=== PATIENT | male | born 1960 | race Two or more races ===

== ENCOUNTER 2020-09-01 15:38 | Inpatient (IN) | payer BC, OTHER ==
[~2020-09-01] VITALS: Ht 175.3 cm; Wt 93.6 kg
[2020-09-01] MEDS ORDERED: CLINDAMYCIN 900MG IV 50 ML IV ONE (17:00)
[2020-09-01] MEDS ORDERED: cefTRIAXone 1GM/50ML D5W 50 ML IV ONE (17:00)
[2020-09-01 17:11] LABS: Basophils # (auto) 0.1 10 ^3/uL (0-0.2); Basophils % (auto) 0.9 % (0.0-2.0); Eosinophils # (auto) 0 10 ^3/uL (0-0.8); Eosinophils % (auto) 0.5 % (0.0-7.0); Hematocrit 34.7 % (41.0-53.0); Hemoglobin 11.6 g/dL (13.5-17.5); Lymphocytes # (auto) 1.1 10 ^3/uL (0.4-5.4); Lymphocytes % (auto) 19.6 % (10.0-50.0); Mean Corpuscular Hemoglobin 30.5 pg (28.0-32.0); Mean Corpuscular Hgb Conc. 33.5 g/dL (32.0-36.0); Mean Corpuscular Volume 90.9 fL (80.0-100.0); Monocytes # (auto) 0.5 10 ^3/uL (0-1.3); Monocytes % (auto) 8.3 % (0.0-12.0); Neutrophils # (auto) 4.1 10 ^3/uL (1.6-8.6); Neutrophils % (auto) 70.7 % (37.0-80.0); Nucleated Red Blood Cells % 0.1 %; Platelet Count (auto) 363 10^3/uL (140-450); Red Blood Cells 3.81 10^6/uL (4.5-5.90); Red Cell Distribution Width 15.4 % (11.8-14.3); White Blood Cell 5.8 10^3/uL (4.4-10.8)
[2020-09-01 17:26] LABS: INR 1.3 (0.9-1.15)
[2020-09-01 17:30] LABS: Albumin 3.3 g/dL (3.4-5.0); Calcium 8.8 mg/dL (8.5-10.1); Potassium 3.9 mmol/L (3.5-5.1)
[2020-09-01 17:33] LABS: BUN/Creatinine Ratio 16.7; Bilirubin, Total 0.9 mg/dL (0.2-1.0); Total Protein 7.9 g/dL (6.4-8.2)
[2020-09-01] MEDS ORDERED: InsuLIN REG 1unit/0.01ml Soln (100units/ml) SC ONE (18:45)
[2020-09-01] MEDS ORDERED: PANTOPRAZOLE 40 MG/10 ML VIAL INJ IV ONE (18:45)
[2020-09-01] MEDS ORDERED: NITROGLYCERIN 0.4 MG SL TAB SL PRN ×2 (19:15→19:45)
[2020-09-01] MEDS ORDERED: MORPHINE SULF INJ 2 MG/ML SYRINGE 1ML IV PRN ×2 (19:15→19:45)
[2020-09-01] MEDS ORDERED: LACTATED RINGER'S 1,000 ML IV ONE (19:30)
[2020-09-01] MEDS ORDERED: LORazepam 0.5 MG TAB PO PRN (19:45)
[2020-09-01] MEDS ORDERED: PIPERACILLIN-TAZOB 2.25GM 50 ML IV ONE (19:45)
[2020-09-01] MEDS ORDERED: ACETAMINOPHEN 325 MG TAB PO PRN (19:45)
[2020-09-01] MEDS ORDERED: VANCOMYCIN PER PHARMACY 0 MG IV SCH (19:45)
[2020-09-01] MEDS ORDERED: DEXTROSE (50%) 50ML SYRG IV PRN (19:45)
[2020-09-01] MEDS ORDERED: DOCUSATE SOD 100 MG CAP PO PRN (19:45)
[2020-09-01] MEDS ORDERED: ALUM & MAG HYDROX-SIMETH LIQ(MAALOX) 30 ML PO PRN (19:45)
[2020-09-01] MEDS ORDERED: ONDANSETRON HCL 4 MG/2 ML VIAL IV PRN (19:45)
[2020-09-01] MEDS ORDERED: hydrALAZINE HCL 20 MG/ML VL IV PRN (20:15)
[2020-09-01] MEDS: SODIUM CHLORIDE 0.9% 1,000 ML IV SCH (20:26)
[2020-09-01 21:18] LABS: Cholesterol 108 mg/dL (< 200); Triglycerides 134 mg/dL (< 150)
[2020-09-01 21:20] LABS: HDL Cholesterol 38 mg/dL (40-59); LDL Cholesterol 53 mg/dL (< 100)
[2020-09-01 22:00] VITALS: BP 120/91
[2020-09-01] MEDS ORDERED: VANCOMYCIN 1GM/250ML 250 ML IV ONE (22:00)
[2020-09-01] MEDS ORDERED: CARV25TA55 PO (22:28)
[2020-09-01] MEDS ORDERED: DOXY-340 PO (22:28)
[2020-09-01] MEDS ORDERED: SITA100T7 PO (22:28)
[2020-09-01] MEDS ORDERED: GABA800T97 PO (22:28)
[2020-09-01] MEDS ORDERED: LISI2.5T47 PO (22:28)
[2020-09-01] MEDS ORDERED: HYDR12.55 PO (22:28)
[2020-09-01] MEDS ORDERED: SEMA2INJ SC (22:28)
[2020-09-01] MEDS ORDERED: RIV20T PO (22:28)
[2020-09-01] MEDS ORDERED: INSUINJ37 SC (22:28)
[2020-09-01] MEDS: ACCU-CHEK COMFORT CURVE STRIP VI SCH (23:03)
[2020-09-01] MEDS: InsuLIN REG 1unit/0.01ml Soln (100units/ml) SC SCH (23:14)
[2020-09-01] MEDS: CARVEDILOL 12.5 MG TAB PO SCH (23:15)
[2020-09-01] MEDS: GABAPENTIN 300 MG CAP PO SCH (23:15)
[2020-09-01] MEDS: ATORVASTATIN 20 MG TAB PO SCH (23:15)
--- NOTE | 2020-09-02 00:05 | NUR ---
tele admit from ED pt arrived awake alert oriented on room air no distress noted or expressed. pt oriented to this nurse, room, bathroom, bed control, call light usage. pt updated on plan of care. pt denies any pain. pt bed locked low and 2x rails up. pt tele 42 showing sinus tach 112bpm. pt has wound to left foot to which he reports he is able to ambulate whilst managing most of weight on opposite leg. pt dressing applied in ED post photo is clean dry intact. pt call light in reach, encouraged to call as needed. this nurse to round q1hr and prn.
[2020-09-02 05:49] VITALS: BP 105/63
[2020-09-02] MEDS: PIPERACILLIN-TAZOB 2.25GM 50 ML IV SCH ×2 (06:20→12:00)
[2020-09-02] MEDS: GABAPENTIN 300 MG CAP PO SCH ×3 (06:20→22:11)
[2020-09-02 06:21] LABS: Basophils # (auto) 0.1 10 ^3/uL (0-0.2); Basophils % (auto) 1.3 % (0.0-2.0); Eosinophils # (auto) 0.1 10 ^3/uL (0-0.8); Eosinophils % (auto) 2.4 % (0.0-7.0); Hematocrit 32.6 % (41.0-53.0); Hemoglobin 10.8 g/dL (13.5-17.5); Lymphocytes # (auto) 1.4 10 ^3/uL (0.4-5.4); Lymphocytes % (auto) 27.1 % (10.0-50.0); Mean Corpuscular Hemoglobin 30.1 pg (28.0-32.0); Mean Corpuscular Hgb Conc. 33.2 g/dL (32.0-36.0); Mean Corpuscular Volume 90.7 fL (80.0-100.0); Monocytes # (auto) 0.5 10 ^3/uL (0-1.3); Neutrophils % (auto) 59.2 % (37.0-80.0); Nucleated Red Blood Cells % 0.1 %; Platelet Count (auto) 319 10^3/uL (140-450); Red Blood Cells 3.59 10^6/uL (4.5-5.90); Red Cell Distribution Width 15.2 % (11.8-14.3); White Blood Cell 5.1 10^3/uL (4.4-10.8)
[2020-09-02] MEDS: InsuLIN REG 1unit/0.01ml Soln (100units/ml) SC SCH ×4 (06:24→22:15)
[2020-09-02] MEDS: ACCU-CHEK COMFORT CURVE STRIP VI SCH ×4 (06:40→22:13)
[2020-09-02 06:44] LABS: BUN/Creatinine Ratio 16.4; Calcium 8.6 mg/dL (8.5-10.1)
[2020-09-02 08:20] VITALS: BP 119/80
--- NOTE | 2020-09-02 08:20 | NUR ---
Opening Shift Note Assumed care of patient, awake and alert. No S/S of distress/SOB or pain. 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 Dr. Melara at bedside discussing the POC and possible surgical intervention today pending cardiac clearance. Patient verbalized understanding. Instructed to call for assist PRN. Will continue to monitor for changes Q1hr and PRN.
[2020-09-02 09:00] VITALS: BP 119/80
--- NOTE | 2020-09-02 09:21 | NUR ---
JACKELYN SPOKE WITH PRIMARY RN GARCIA REGARDING MIDLINE ORDER. SHE STATED PATIENT HAS 2 PATENT PIV AT THIS TIME AND IS IN NO NEED FOR A MIDLINE RIGHT NOW. I LET HER KNOW SINCE PATIENTS ADMITTING DIAGNOSIS IS OSTEOMYELITIS HE MAY STILL NEED MIDLINE OR PICC LINE UPON DISCHARGE IF DOCTOR ORDERS HOME IV ABX. WILL FOLLOW UP WITH PATIENTS STATUS.
[2020-09-02] MEDS: ENOXAPARIN SOD 40 MG/0.4 ML SYRINGE SC SCH (10:00)
[2020-09-02] MEDS: ASPirin 81 mg TAB PO SCH (10:00)
[2020-09-02] MEDS: HCTZ 25 MG TAB PO SCH (10:00)
[2020-09-02] MEDS: SODIUM CHLORIDE 0.9% 1,000 ML IV SCH ×2 (10:03→22:36)
[2020-09-02] MEDS: CARVEDILOL 12.5 MG TAB PO SCH ×2 (10:04→22:00)
[2020-09-02] MEDS: LISINOPRIL 5 MG TAB PO SCH (10:05)
--- NOTE | 2020-09-02 10:08 | NUR ---
Medication withheld Lovenox and aspirin held for procedure. Surgeon aware. Patient's BP 119/80 withheld hydrochlorothiazide per pre-op. Carvedilol and lisinopril given. Will update MD.
--- NOTE | 2020-09-02 11:30 | NUR ---
Patient transferred to OR Patient transported off the floor to OR by bed. Report given to pre-op nurse.
[2020-09-02] MEDS ORDERED: BACITRACIN INJ 50000 UNIT VIAL ONE (12:15)
[2020-09-02] MEDS ORDERED: BUPIVACAINE 0.25% INJ 50ML VIAL ONE (12:15)
--- NOTE | 2020-09-02 12:25 | NUR ---
ASSUMED CARE RECEIVED REPORT FROM GARCIA KAT. WILL CONTINUE CARE.
[2020-09-02] MEDS ORDERED: DexAMETHasone SOD PHOS 10MG/1ML VIAL INJ ONE (12:31)
[2020-09-02] MEDS ORDERED: fentaNYL CITRATE 100 MCG/2 ML VL ONE (12:31)
[2020-09-02] MEDS ORDERED: MIDAZOLAM HCL 1MG/1ML-2 ML VIAL ONE (12:31)
[2020-09-02] MEDS ORDERED: MEPERIDINE HCL (25 MG/ML) 1ML VIAL ONE (12:31)
[2020-09-02] MEDS ORDERED: PROPOFOL 10 MG/ML 20 ML IV ONE (12:31)
--- NOTE | 2020-09-02 12:37 | NUR ---
Handoff Report given to Kiara.
[2020-09-02] MEDS ORDERED: VANCOMYCIN 1GM/250ML 250 ML IV ONE ×2 (13:45→17:05)
[2020-09-02] MEDS ORDERED: MORPHINE SULFATE 4 MG/ML SYR/VIAL IV PRN (15:30)
[2020-09-02] MEDS ORDERED: ePHEDrine SULFATE 50 MG/ML AMP IV PRN (15:30)
[2020-09-02] MEDS ORDERED: MIDAZOLAM HCL 1MG/1ML-2 ML VIAL IV PRN (15:30)
[2020-09-02] MEDS ORDERED: ONDANSETRON HCL 4 MG/2 ML VIAL IV PRN (15:30)
[2020-09-02] MEDS ORDERED: LABETALOL HCL 5 MG/ML 4ML SYRINGE IV PRN (15:30)
[2020-09-02] MEDS ORDERED: HYDROmorphone HCL 2 MG/ML VL IV PRN (15:30)
--- NOTE | 2020-09-02 16:16 | NUR ---
MIDLINE SPOKE WITH PRIMARY RN BARBARA REGARDING MIDLINE ORDER. AWAITING FURTHER ANTIBIOTIC DURATION OF TREATMENT TO ENSURE PROPER LINE IS PLACED DUE TO PATIENTS DIAGNOSIS. PATIENT HAS 2 PATENT PIV AT THIS TIME.
--- NOTE | 2020-09-02 16:17 | NUR ---
BACK FROM OR PATIENT BROUGHT BACK TO ROOM AFTER REPORT RECEIVED. NO S/S OF DISTRESS NOTED OR COMPLAINTS OF PAIN AT THIS TIME. PATIENT HAS SENSATION AND IS ABLE TO MOVE TOES. WILL CONTINUE TO MONITOR Q1H AND PRN.
[2020-09-02 17:02] VITALS: BP 106/68
[2020-09-02 18:12] LABS: Hematocrit 32.4 % (41.0-53.0); Hemoglobin 10.6 g/dL (13.5-17.5)
[2020-09-02] MEDS: PIPERACILLIN-TAZOB 3.375GM 100 ML IV SCH ×2 (18:28→23:55)
--- NOTE | 2020-09-02 18:37 | NUR ---
AT BEDSIDE DR FLOOD AT BEDSIDE ROUNDING ON PATIENT.
--- NOTE | 2020-09-02 19:20 | NUR ---
OPENING SHIFT NOTE Assumed care of patient who is alert and oriented, currently on RA with no S/S of distress or SOB noted at this time. Patient had an I&D of the left foot today with , dressing is clean dry and intact. Patient complains of pain 6/10 to the left foot, will administer pain medication as ordered. POC discussed with patient, all questions answered and patient verbalized understanding. Bed in lowest position, locked, side rials up x2. Call light within reach, patient encouraged to call for assistance as needed. Will continue to monitor PRN/Q1hr.
[2020-09-02] MEDS: HYDROcodone-ACET 5/325MG TAB PO PRN (20:05)
[2020-09-02 22:00] VITALS: BP 97/68
--- NOTE | 2020-09-02 22:00 | NUR ---
SPOKE WITH HOSPITALIST PANCHITO REGARDING PATIENTS BLOOD PRESSURE. BP 97/68 HR 95, ORDERED TO HOLD COREG FOR TONIGHT. WILL CARRY OUT ORDER AND HOLD 2200 COREG.
[2020-09-02] MEDS: ATORVASTATIN 20 MG TAB PO SCH (22:13)
[2020-09-03] MEDS: PIPERACILLIN-TAZOB 3.375GM 100 ML IV SCH ×4 (05:48→23:45)
[2020-09-03] MEDS: GABAPENTIN 300 MG CAP PO SCH ×3 (05:48→22:00)
[2020-09-03 05:55] VITALS: BP 100/65
[2020-09-03] MEDS: ACCU-CHEK COMFORT CURVE STRIP VI SCH ×4 (06:35→22:00)
[2020-09-03] MEDS: InsuLIN REG 1unit/0.01ml Soln (100units/ml) SC SCH ×4 (06:37→22:00)
--- NOTE | 2020-09-03 07:17 | NUR ---
CARE ENDORSED TO GARCIA KAT
--- NOTE | 2020-09-03 07:20 | NUR ---
Opening Shift Note Assumed care of patient. Patient sleeping. maintenance technician 3rd shift reported patient was up all night. Will return for morning assessment. Will continue to monitor for changes Q1hr and PRN.
[2020-09-03 08:15] VITALS: BP 136/69
[2020-09-03 08:56] VITALS: BP 99/64
--- NOTE | 2020-09-03 09:00 | NUR ---
Dr. Chavez at bedside Dr. Chavez at bedside discussing the POC with the patient. Patient verbalized understanding. All questions and concerns were answered at this time.
[2020-09-03] MEDS: CARVEDILOL 12.5 MG TAB PO SCH ×2 (10:00→22:00)
[2020-09-03] MEDS: HCTZ 25 MG TAB PO SCH (10:00)
[2020-09-03] MEDS: LISINOPRIL 5 MG TAB PO SCH (10:00)
[2020-09-03] MEDS: ENOXAPARIN SOD 40 MG/0.4 ML SYRINGE SC SCH (10:31)
[2020-09-03] MEDS: VANCOMYCIN 1GM/250ML 250 ML IV SCH (10:32)
[2020-09-03] MEDS: ASPirin 81 mg TAB PO SCH (10:33)
--- NOTE | 2020-09-03 11:00 | NUR ---
Medication withheld HCTZ and lisinopril held for low BP 104/66. Dr. Chavez aware.
[2020-09-03] MEDS: SODIUM CHLORIDE 0.9% 1,000 ML IV SCH ×2 (11:45→19:30)
[2020-09-03 12:46] VITALS: BP 114/63
--- NOTE | 2020-09-03 14:33 | NUR ---
Spoke with Dr. Kelton Melara called to inquire about possible dressing changes. Wound shows no signs of active bleeding but does have a moderate amount of dried blood on the lateral side. Informed that Lovenox was given this morning. Doctor stated that he is more concerned about his hemodynamic function and that he has no issue with continuing the medication. Doctor stated he will input orders. Will carry out accordingly.
--- NOTE | 2020-09-03 16:10 | NUR ---
Low BP Patient's BP 93/59 reported at 1600 vitals. Patient is asymptomatic. Dr. Chavez called. Ordered 1L given over 1 HR and then 125 mL/HR. CMP, CBC ordered for the AM. Will continue to assess.
--- NOTE | 2020-09-03 17:00 | NUR ---
Dressings changed Wound dressings changed according to doctors orders. Tissue appears to have a good blood supply. Patient tolerated procedure well.
[2020-09-03 17:06] VITALS: BP 93/59
--- NOTE | 2020-09-03 18:32 | NUR ---
IV removal Left forearm IV site appeared edematous after running NS. IV DC'd with sterile technique, catheter fully intact. Pressure dressing applied as well as an ice pack and elevated on a pillow. Patient tolerated procedure well. Discharged with aftercare instructions per MD. IV access obtained, via clean sterile technique by inserting 20 gauge catheter on the left AC after 1 attempt. IV secured properly. No trauma to site. Patient tolerated procedure well.
--- NOTE | 2020-09-03 18:51 | NUR ---
BP reassessed BP reassessed after 1L given, 97/51. Hospitalist called ordered 1L bolus. Will endorse to shift supervisor to reassess.
[2020-09-03] MEDS ORDERED: SODIUM CHLORIDE 0.9% 1,000 ML IV ONE ×2 (19:30→19:45)
[2020-09-03 22:00] VITALS: BP 114/74
[2020-09-03] MEDS: ATORVASTATIN 20 MG TAB PO SCH (22:00)
[2020-09-03] MEDS: DAKINS QUARTER STR 0.125% (NaHypochlorite) 473 ML TOPICAL SOL TOP SCH (22:00)
[2020-09-03] MEDS: MORPHINE SULF INJ 2 MG/ML SYRINGE 1ML IV PRN (23:15)
[2020-09-04] MEDS: VANCOMYCIN 1GM/250ML 250 ML IV SCH (00:56)
[2020-09-04] MEDS: SODIUM CHLORIDE 0.9% 1,000 ML IV SCH ×4 (00:57→19:42)
[2020-09-04 05:00] VITALS: BP 115/73
[2020-09-04] MEDS: GABAPENTIN 300 MG CAP PO SCH ×3 (06:00→22:13)
[2020-09-04] MEDS: PIPERACILLIN-TAZOB 3.375GM 100 ML IV SCH (06:00)
[2020-09-04 06:15] LABS: Basophils # (auto) 0.1 10 ^3/uL (0-0.2); Basophils % (auto) 0.9 % (0.0-2.0); Eosinophils # (auto) 0.1 10 ^3/uL (0-0.8); Eosinophils % (auto) 1.1 % (0.0-7.0); Hematocrit 29.3 % (41.0-53.0); Hemoglobin 9.9 g/dL (13.5-17.5); Lymphocytes # (auto) 1.6 10 ^3/uL (0.4-5.4); Lymphocytes % (auto) 24.3 % (10.0-50.0); Mean Corpuscular Hemoglobin 30.5 pg (28.0-32.0); Mean Corpuscular Hgb Conc. 33.7 g/dL (32.0-36.0); Mean Corpuscular Volume 90.7 fL (80.0-100.0); Monocytes # (auto) 0.5 10 ^3/uL (0-1.3); Monocytes % (auto) 8.1 % (0.0-12.0); Neutrophils # (auto) 4.3 10 ^3/uL (1.6-8.6); Neutrophils % (auto) 65.6 % (37.0-80.0); Platelet Count (auto) 278 10^3/uL (140-450); Red Blood Cells 3.23 10^6/uL (4.5-5.90); Red Cell Distribution Width 15.4 % (11.8-14.3); White Blood Cell 6.5 10^3/uL (4.4-10.8)
[2020-09-04 06:32] LABS: Albumin 2.5 g/dL (3.4-5.0); BUN/Creatinine Ratio 14.2; Calcium 8.4 mg/dL (8.5-10.1)
[2020-09-04 06:34] LABS: Bilirubin, Total 0.7 mg/dL (0.2-1.0); Total Protein 6.4 g/dL (6.4-8.2)
[2020-09-04] MEDS: ACCU-CHEK COMFORT CURVE STRIP VI SCH ×4 (06:46→22:13)
[2020-09-04] MEDS: InsuLIN REG 1unit/0.01ml Soln (100units/ml) SC SCH ×4 (06:47→22:17)
--- NOTE | 2020-09-04 07:30 | NUR ---
RECEIVED REPORT FROM NIGHT NURSE. PATIENT RESTING IN BED, NO DISTRESS NOTED. WILL CONTINUE TO MONITOR.
[2020-09-04 08:30] VITALS: BP 119/73
[2020-09-04] MEDS: ENOXAPARIN SOD 40 MG/0.4 ML SYRINGE SC SCH (10:00)
[2020-09-04] MEDS: ASPirin 81 mg TAB PO SCH (10:45)
[2020-09-04] MEDS: levoFLOXacin 500MG 100 ML IV SCH (10:45)
[2020-09-04] MEDS: CARVEDILOL 12.5 MG TAB PO SCH ×2 (10:46→22:13)
[2020-09-04] MEDS: LISINOPRIL 5 MG TAB PO SCH (10:46)
[2020-09-04] MEDS: HCTZ 25 MG TAB PO SCH (10:47)
[2020-09-04 12:14] VITALS: BP 119/73
--- NOTE | 2020-09-04 12:21 | NUR ---
Assumed pt Care Assumed pt care from [facility]. Pt is a/ox4 with no s/s of distress or SOB. Pt is currently sitting upright in bed with no complaints at this time. Will continue to monitor.
--- NOTE | 2020-09-04 12:27 | NUR ---
PATIENT CARE ENDORSED TO [facility].
[2020-09-04] MEDS: DAKINS QUARTER STR 0.125% (NaHypochlorite) 473 ML TOPICAL SOL TOP SCH ×2 (12:57→22:14)
--- NOTE | 2020-09-04 12:58 | NUR ---
Wound Care Performed Per MDs orders Pt tolerated treatment well. Will continue to monitor.
--- NOTE | 2020-09-04 14:03 | NUR ---
Nutrition Assessment Est energy needs 1227-1729 kcal (18-20 kcal/kg BW 97.4kg) Est protein needs 73-95g (1-1.3g/kg IBW 73kg) Will monitor and reassess prn. Addendum: 09/04/20 at [address] Amended: Links added.
[2020-09-04] MEDS: MORPHINE SULF INJ 2 MG/ML SYRINGE 1ML IV PRN ×3 (15:49→23:48)
[2020-09-04 16:53] VITALS: BP 112/70
--- NOTE | 2020-09-04 19:34 | NUR ---
Opening Shift Note Assumed care of patient, awake and alert x 4. No S/S of distress/SOB. Bed is in lowest position and locked. Call light within reach. Board updated. Tele box number matches monitor and leads are in correct placement. Instructed on POC and to call for assist PRN, will continue to monitor for changes Q1hr and PRN.
[2020-09-04 22:00] VITALS: BP 129/69
[2020-09-04] MEDS: ATORVASTATIN 20 MG TAB PO SCH (22:13)
[2020-09-04] MEDS: HYDROcodone-ACET 5/325MG TAB PO PRN (22:41)
--- NOTE | 2020-09-04 22:48 | NUR ---
Wound care performed per MD order. Patient tolerated well.
[2020-09-05] MEDS: SODIUM CHLORIDE 0.9% 1,000 ML IV SCH ×3 (04:09→20:15)
[2020-09-05 05:00] VITALS: BP 111/74
[2020-09-05] MEDS: GABAPENTIN 300 MG CAP PO SCH ×3 (06:00→22:19)
[2020-09-05 06:20] LABS: Basophils # (auto) 0 10 ^3/uL (0-0.2); Basophils % (auto) 0.3 % (0.0-2.0); Eosinophils # (auto) 0.2 10 ^3/uL (0-0.8); Hematocrit 28.5 % (41.0-53.0); Hemoglobin 9.6 g/dL (13.5-17.5); Lymphocytes # (auto) 1.9 10 ^3/uL (0.4-5.4); Lymphocytes % (auto) 34.1 % (10.0-50.0); Mean Corpuscular Hemoglobin 30.6 pg (28.0-32.0); Mean Corpuscular Hgb Conc. 33.7 g/dL (32.0-36.0); Mean Corpuscular Volume 90.8 fL (80.0-100.0); Monocytes # (auto) 0.7 10 ^3/uL (0-1.3); Neutrophils # (auto) 2.8 10 ^3/uL (1.6-8.6); Neutrophils % (auto) 49.6 % (37.0-80.0); Platelet Count (auto) 253 10^3/uL (140-450); Red Blood Cells 3.14 10^6/uL (4.5-5.90); Red Cell Distribution Width 15.5 % (11.8-14.3); White Blood Cell 5.6 10^3/uL (4.4-10.8)
[2020-09-05 06:27] LABS: INR 1.06 (0.9-1.15); Partial Thromboplastin Time 24.5 sec (23.0-31.2)
[2020-09-05] MEDS: ACCU-CHEK COMFORT CURVE STRIP VI SCH ×4 (06:34→22:14)
[2020-09-05] MEDS: InsuLIN REG 1unit/0.01ml Soln (100units/ml) SC SCH ×4 (06:34→22:18)
[2020-09-05 06:38] LABS: BUN/Creatinine Ratio 12.9; Calcium 8.5 mg/dL (8.5-10.1)
[2020-09-05] MEDS ORDERED: IOHEXOL 350 MG/ML 100ML IJ ONE ×2 (07:38→15:12)
[2020-09-05 07:40] VITALS: BP 124/80
--- NOTE | 2020-09-05 07:40 | NUR ---
Patient stable at this time with no complaint of pain.
[2020-09-05 08:41] VITALS: BP 124/80
--- NOTE | 2020-09-05 08:50 | NUR ---
Patient resting comfortably in bed with no distress noted. Patient stable.
[2020-09-05] MEDS: CARVEDILOL 12.5 MG TAB PO SCH ×2 (09:18→22:20)
[2020-09-05] MEDS: LISINOPRIL 5 MG TAB PO SCH (09:18)
[2020-09-05] MEDS: levoFLOXacin 500MG 100 ML IV SCH (09:18)
[2020-09-05] MEDS: HCTZ 25 MG TAB PO SCH (09:18)
[2020-09-05] MEDS: ASPirin 81 mg TAB PO SCH (09:18)
--- NOTE | 2020-09-05 09:19 | NUR ---
Scheduled IV abx given per order. Patient stable with Dr. Yu at bedside to do dressing change on left foot. Patient stable.
[2020-09-05] MEDS: DAKINS QUARTER STR 0.125% (NaHypochlorite) 473 ML TOPICAL SOL TOP SCH ×2 (09:23→23:56)
--- NOTE | 2020-09-05 11:50 | NUR ---
Checked blood sugar: 148 mg/dl - patient NPO; no coverage given. Patient resting comfortably in bed with no complaint of pain. Patient stable.
--- NOTE | 2020-09-05 12:23 | NUR ---
assessment Patient is a 59 year old male who is alert and oriented. Patients cognitive abilities are intact. Prior to admission patient lived home with family and functioned independently. Patient informed me he is able to care for his own ADLs. Per patient he will return home to his prior living arrangements post discharge and family will transport him home. Patient informed me his PCP is Dr Lorenzo in [place]. Patient lives in [place]. Patient is being seen by Dr Francis who had him come to [facility] for treatment. Patient was admitted for Osteomyelitis. Patient will need home health and home IV ABX on discharge. Patient informed me he will have help on discharge for IV ABX. Patient informed me he has a fww, cane, and wheelchair for home use. I informed patient he has a right to speak to a social human services assistants regarding all care. I informed patient he has a right to participate in any and all discharge planning. Patient does not have a POA and advanced directive. I have offered patient information on POA and advanced directives. I informed the patient the advantages and benefits of having an Advanced Directive. Patient verbalized understanding and agreed to discharge plan. Addendum: 09/05/20 at 1227 by Belkys LYN Amended: Links added.
--- NOTE | 2020-09-05 12:45 | NUR ---
Patient taken to [employer] [employer] for angio of lower extremities.
[2020-09-05 13:00] VITALS: BP 143/76
[2020-09-05] MEDS ORDERED: LIDOCAINE 2%HCL (LOCAL ANESTH.) INJ 20ML MDV ONE (15:12)
[2020-09-05] MEDS ORDERED: ANGIOMAX 250 MG VIAL IV ONE (15:18)
[2020-09-05] MEDS ORDERED: SODIUM CHL 0.9% 0 ML ONE (15:19)
[2020-09-05] MEDS ORDERED: MIDAZOLAM HCL 1MG/1ML-2 ML VIAL ONE (15:19)
[2020-09-05] MEDS ORDERED: fentaNYL CITRATE 100 MCG/2 ML VL ONE (15:19)
--- NOTE | 2020-09-05 15:54 | NUR ---
Patient brought to recovery via bed, report received from [facility]. Patient is AO x 4,denies pain at this time. NAD noted. Right groin site is benign no s/s of bleeding or hematoma formation. Dressing is in place and is CDI. Positive circulation, movement and sensation noted to BLE. Patient verbalized understanding to post-procedure care instructions and flat time.
[2020-09-05] MEDS ORDERED: RIVAROXABAN 20 MG TAB PO SCH (16:00)
--- NOTE | 2020-09-05 16:09 | NUR ---
Patient is resting in bed with eyes closed. Breaths are even and unlabored. Right groin site remains unchanged.
--- NOTE | 2020-09-05 16:10 | NUR ---
Report given to primary RN, Renetta.
--- NOTE | 2020-09-05 16:30 | NUR ---
Patient taken to telemetry unit, manager monitoring in place. NAD noted upon departure. Primary RNRenetta present at bedside to witness right groin site benign, no s/s of bleeding or hematoma formation. Bed set in lowest locked position with side rails up x2, call light is within reach and bed alarm set on for safety. Care endorsed to [facility].
--- NOTE | 2020-09-05 16:39 | NUR ---
Patient returned to unit in stable condition with angioseal in right groin. Patient advised to lay flat till 1800.
[2020-09-05 17:00] VITALS: BP 124/87
--- NOTE | 2020-09-05 17:40 | NUR ---
Ordered po medication given. Checked blood sugar: 138 mg/dl - will cover per sliding scale. Patient stable at this time.
--- NOTE | 2020-09-05 19:30 | NUR ---
Opening Shift Note Assumed care of patient, awake and alert. No S/S of distress/SOB or pain. Dressing to left foot and right groin clean, dry, and intact. Instructed on POC and to call for assist PRN, will continue to monitor for changes Q1hr and PRN.
[2020-09-05] MEDS: MORPHINE SULF INJ 2 MG/ML SYRINGE 1ML IV PRN (20:14)
[2020-09-05] MEDS: HYDROcodone-ACET 5/325MG TAB PO PRN (20:23)
[2020-09-05] MEDS: AMOXICILLIN/CLAVUL 875 MG TAB PO SCH (22:19)
[2020-09-05] MEDS: ATORVASTATIN 20 MG TAB PO SCH (22:19)
[2020-09-05 23:05] VITALS: BP 109/65
[2020-09-06] MEDS: SODIUM CHLORIDE 0.9% 1,000 ML IV SCH ×2 (03:42→11:30)
[2020-09-06] MEDS: HYDROcodone-ACET 5/325MG TAB PO PRN (03:55)
[2020-09-06 05:35] VITALS: BP 134/92
[2020-09-06] MEDS: ACCU-CHEK COMFORT CURVE STRIP VI SCH ×3 (06:34→17:00)
[2020-09-06] MEDS: InsuLIN REG 1unit/0.01ml Soln (100units/ml) SC SCH ×3 (06:37→17:00)
[2020-09-06] MEDS: GABAPENTIN 300 MG CAP PO SCH ×2 (06:40→14:22)
[2020-09-06 09:00] VITALS: BP 131/72
[2020-09-06] MEDS: AMOXICILLIN/CLAVUL 875 MG TAB PO SCH (10:02)
[2020-09-06] MEDS: levoFLOXacin 500MG 100 ML IV SCH (10:02)
[2020-09-06] MEDS: HCTZ 25 MG TAB PO SCH (10:02)
[2020-09-06] MEDS: ASPirin 81 mg TAB PO SCH (10:03)
[2020-09-06] MEDS: CARVEDILOL 12.5 MG TAB PO SCH (10:04)
[2020-09-06] MEDS: LISINOPRIL 5 MG TAB PO SCH (10:04)
[2020-09-06] MEDS: MORPHINE SULF INJ 2 MG/ML SYRINGE 1ML IV PRN ×2 (10:07→14:23)
[2020-09-06] MEDS ORDERED: PHENYLEPHRINE HCL 10 MG/ML VL IV ONE (12:28)
[2020-09-06 13:00] VITALS: BP 112/67
[2020-09-06 13:54] VITALS: BP 112/67
[2020-09-06] MEDS: DAKINS QUARTER STR 0.125% (NaHypochlorite) 473 ML TOPICAL SOL TOP SCH (14:22)
--- NOTE | 2020-09-06 14:30 | NUR ---
Wound care Done per MD orders. Patient tolerated well.
[2020-09-06 17:00] VITALS: BP 108/63
--- NOTE | 2020-09-06 17:00 | NUR ---
DC photos WC completed earlier. Patient refusing DC wound photos. Patient stated that WC was already done and does not want to undo dressings.
--- NOTE | 2020-09-06 17:15 | NUR ---
Discharge instructions given as ordered. Encourage to follow up with PMD as instructed. Patient stated he has a follow up appointment with his screen maker tomorrow (Dr. Alicia Sanchez) in [place]. All questions and concerns addressed. Patient verbalized understanding. Medication reconciliation form completed and copy given to patient. IV removed with catheter intact, pressure dressing applied. Telemetry unit returned to ICU. Patient taken to vehicle via wheelchair with all personal belongings, accompanied by staff. No distress noted at time of departure.
== END 2020-09-06 17:15 | disposition home or self-care (01) | DRG 617 ==
LOC: ER 15:38 → OBSVTOIN 15:39 → TELE 15:39 → TELE-EAST 22:05
PROVIDERS: ADMIT Physician Assistant; ATTEND Family Medicine
PROC: 0Y6N0ZD Detachment at Left Foot, Partial 4th Ray, Open Approach (ICD-10-PCS; 2020-09-02)
PROC: 0Y6N0ZF Detachment at Left Foot, Partial 5th Ray, Open Approach (ICD-10-PCS; 2020-09-02)
PROC: 0QBR0ZZ Excision of Left Toe Phalanx, Open Approach (ICD-10-PCS; principal; 2020-09-02 12:31)
PROC: B41G1ZZ Fluoroscopy of Left Lower Extremity Arteries using Low Osmolar Contrast (ICD-10-PCS; 2020-09-05)
PROC: B41F1ZZ Fluoroscopy of Right Lower Extremity Arteries using Low Osmolar Contrast (ICD-10-PCS; 2020-09-05)
DX: E11.69 Type 2 diabetes mellitus with other specified complication (principal); M86.8X7 Other osteomyelitis, ankle and foot; I13.0 Hypertensive heart and chronic kidney disease with heart failure and stage 1 through stage 4 chronic kidney disease, or unspecified chronic kidney disease; L97.329 Non-pressure chronic ulcer of left ankle with unspecified severity; E87.1 Hypo-osmolality and hyponatremia; I48.20 Chronic atrial fibrillation, unspecified; E44.0 Moderate protein-calorie malnutrition; I42.9 Cardiomyopathy, unspecified; E11.621 Type 2 diabetes mellitus with foot ulcer; N17.0 Acute kidney failure with tubular necrosis; N18.4 Chronic kidney disease, stage 4 (severe); N17.9 Acute kidney failure, unspecified; E66.9 Obesity, unspecified; D64.9 Anemia, unspecified; E11.22 Type 2 diabetes mellitus with diabetic chronic kidney disease; E78.00 Pure hypercholesterolemia, unspecified; B96.1 Klebsiella pneumoniae [K. pneumoniae] as the cause of diseases classified elsewhere; B96.5 Pseudomonas (aeruginosa) (mallei) (pseudomallei) as the cause of diseases classified elsewhere; B95.2 Enterococcus as the cause of diseases classified elsewhere; E11.65 Type 2 diabetes mellitus with hyperglycemia; E11.51 Type 2 diabetes mellitus with diabetic peripheral angiopathy without gangrene; Z79.01 Long term (current) use of anticoagulants; Z89.422 Acquired absence of other left toe(s); Z79.4 Long term (current) use of insulin; Z95.810 Presence of automatic (implantable) cardiac defibrillator; Z68.30 Body mass index [BMI] 30.0-30.9, adult; Z79.899 Other long term (current) drug therapy
CPT/HCPCS: 36415; 71045; 73700; 80048; 80053; 80061; 80202; 82565; 82962; 83036; 83605; 83880; 84484; 85014; 85018; 85025; 85610; 85730; 87040; 87070; 87075; 87077; 87186; 87205; 93005; 93926; 93971; 96365; 96367; 96368; 96375; 99152; C1781; C9113; G0378; J0696; J1100; J1815; J1956; J2250; J2543; J2704; J3490